=== PATIENT | male | born 1980 | race Caucasian/White ===

== ENCOUNTER 2017-03-18 15:47 | Emergency (ER) | payer OTHER ==
[~2017-03-18] VITALS: Ht 188 cm; Wt 90.9 kg
[~2017-03-18 15:47] MED LIST: IBUP-1149 PO; [UNRECOGNIZED DRUG - CODE] SL
[2017-03-18 15:50] VITALS: BP 136/80; PULSE 69; RESP 16; O2SAT 98
--- NOTE | 2017-03-18 16:27 | ED.REPORT ---
HPI-Extremity Problem Upper Date of Service Mar 18, 2017 ED Provider: Dr. 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 The screwdriver went almost all the way through the hand. Denies fever, chills, SOB, wheezing, nausea or vomiting. 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 (Suboxone 9-9mh-Mssftyvl Drug, Do Not Renew!) 1 Film Film 1 FILM SL DAILY C-III Controlled Substqance IBUPROFEN-Expunged Drug, Do Not Renew! (IBUPROFEN-Expunged Drug, Do Not Renew!) 600 Mg Tablet 600 MG PO DAILY FOR FEVER OR PAIN General Time Seen by MD: 16:27 Chief Complaint Hand Injury left Hx Obtained From: Patient Arrived By: Walk-in Onset Occurred: Just prior to arrival Symptom Duration: Since onset Caused by: Accidental Location: : Hand left Quality: Painful Severity: Current: Moderate Severity: Maximum: Moderate Immunizations: Tetanus not up to date Recent Healthcare: No recent doctor visit, No recent hospitalization Similar Sx Previous: No Past Medical History Past Medical History denies Past Surgical History denies Smoking History Current Some Day Smoker Social History Alcohol Use: Denies alcohol use Drug Use: Denies drug use Occupation and lives with Ambulatory Status Independent Review of Systems Constitutional: Denies: Chills, Fever Musculoskeletal: Reports: Extremity pain Complete sys rev & neg: except as marked. Respiratory: Denies: Shortness of breath, Wheezing GI: Denies: Nausea, Vomiting Physical Exam Initial Vital Signs Vital Signs (First) Date Time Temp Pulse Resp B/P Pulse Ox O2 Delivery O2 Flow Rate FiO2 03/18/17 15:50 36.7 69 16 136/80 98 Initial VS: Reviewed General/Constitutional: Well-developed, Well-nourished Head / Eyes: Atraumatic, Normocephalic, PERRL ENT: Mucous membranes moist, Conjunctiva normal, No scleral icterus Respiratory: Breath sounds normal, Clear to auscultation, No respiratory distress Cardiovascular: Regular rate & rhythm, Heart sounds normal, Intact distal pulses Abdomen / GI: Soft, Non-tender, No guarding, No rebound, No distention Lower Extremities: Vascular intact, Neuro intact, No swelling, No tenderness Skin: Warm, Dry, No cyanosis Neurologic: Alert, Oriented, Nonfocal Psychiatric: Mood/affect normal, Behavior normal, Normal thought content Wrist / Hand: No deformity, Neurologic intact, Vascular intact Puncture wound volar pad soft tissue swelling dorsal hand. Wound does not appear to be through and through. Interpretation & Diagnostics Lab Results Interpretation Test 03/18/17 17:58 X-Ray Interpretation Xray Interpretation: IMPRESSION: No radiopaque foreign body is identified in these 3 views of the left hand. No acute bony abnormality. Dictated by: Luis Clifton M.D. on 03/18/2017 at 16:36 X-Ray Ordered: Hand left Interpretation / Wet Read by: Interpret - Radiologist Re-Eval/Medical Decision Med Decision/Clinical Course Puncture wound without signs of martin or tendon injury. Wound irrigated and cleaned. IV abx given. Short course of [place] prescribed for pain. Augmentin prophylaxis. Ortho follow up. Hand splinted. Opiate warnings given. He denies ever having a problem with oral opiate addiction Wound seems at least moderately painful. Re-Evaluation/Progress : Time of Eval: 16:45 Patient Status: Condition improved Re-Evaluation/Progress Note: Discussed plan for splint and discharge. Pt understands and agrees. Counseled Regarding: Diagnosis, Lab results, Need for follow-up, When/why to return to ED Discharge & Departure Impression: Primary Impression: Puncture wound of left hand Encounter type: initial encounter Foreign body presence: without foreign body Qualified Code: S61.432A - Puncture wound without foreign body of left hand, initial encounter Disposition: Home Discharge Condition All VS Reviewed: Yes Condition: Improved Patient Instructions: Puncture Wound (ED), Splint Care (ED) Additional Instructions: Your x ray did not show any sign of a fracture in your hand. Take Augmentin twice daily for 7 days. Take 1-2 [place] every 6 hours. Use this sparingly as it can be habit forming. Do not drive, drink alcohol, or take acetaminophen while taking the [place]. Only use it for moderate - severe pain. Call ortho tomorrow to make a follow up appointment for next week. Return to the ER for any redness , swelling or discharge. Keep your hand splinted in the Velcro splint until you are seen by ortho. Referrals: Luciana Blanco MD (PCP) Art Jiménez Attestation Portions of this note were transcribed by Evette Ramírez. I, Dr. Aguila personally performed the history, physical exam and medical decision-making; I reviewed and confirmed the accuracy of the information in the transcribed note. Signed by : Nafisa Ordoñez, 03/18/2017. copies to: Art Jiménez DO; Luciana Blanco MD, Todd P DO Mar 18, 2017 16:27 EVETTE RAMÍREZ Mar 18, 2017 16:31
--- NOTE | 2017-03-18 16:39 | DRSVH ---
PROCEDURE: X-RAY LEFT HAND, TWO VIEWS ([id number]) INDICATIONS: ? fb TECHNIQUE: 3 views of the hand(s) acquired. COMPARISON: None. FINDINGS: Bones: No fractures or dislocations. Carpal bones are normally aligned. No suspicious bony lesions . Soft tissues: No suspicious soft tissue calcifications. IMPRESSION: No radiopaque foreign body is identified in these 3 views of the left hand. No acute bony abnormality. Dictated by: Luis Clifton M.D. on 03/18/2017 at 16:36 Approved by: Luis Clifton M.D. on 03/18/2017 at 16:37
[2017-03-18] MEDS ORDERED: cefTRIAXone Inj 2,000 MG in Dextrose 5% Minibag Plus 50 ML IV ONE (16:50)
[2017-03-18] MEDS ORDERED: TdaP Vaccine 0.5 mL Inj IM ONE (16:50)
[2017-03-18 17:58] VITALS: BP 136/80; PULSE 69; RESP 16; O2SAT 98
[2017-03-19] MEDS ORDERED: Sodium Chloride LOK Flush 10 mL Syringe IVFLUSH SCH (00:30)
== END 2017-03-18 17:59 | disposition home or self-care (01) ==
LOC: SED 15:47
DX: S61.432A Puncture wound without foreign body of left hand, initial encounter (principal); W27.0XXA Contact with workbench tool, initial encounter; Y93.89 Activity, other specified; Y92.69 Other specified industrial and construction area as the place of occurrence of the external cause; Y99.0 Civilian activity done for income or pay; F17.200 Nicotine dependence, unspecified, uncomplicated; Z23 Encounter for immunization
CPT/HCPCS: 29125; 73120; 90471; 90715; 96365; 96375; 99284; J0696; J1885